=== PATIENT | female | born 1960 | race Caucasian/White ===

== ENCOUNTER 2019-08-19 18:57 | Emergency (ER) | payer OTHER ==
[~2019-08-19] VITALS: Ht 165.1 cm; Wt 81.8 kg
[2019-08-19 19:19] VITALS: Ht 165.1 cm; Wt 81.8 kg
[2019-08-19] MEDS ORDERED: AMANTADINE100 M1 PO (19:21)
[2019-08-19] MEDS ORDERED: NEURONTIN 300300 MG PO (19:21)
[2019-08-19] MEDS ORDERED: OMEPRAZOLE40 MG PO (19:21)
[2019-08-19] MEDS ORDERED: CELEBREX200 MG PO (19:21)
[2019-08-19] MEDS ORDERED: PREDNISONE1 MG PO (19:21)
[2019-08-19] MEDS ORDERED: MECLIZINE HCL25 MG PO (19:22)
[2019-08-19] MEDS ORDERED: FISH OIL 1,0001 CA1 PO (19:22)
[2019-08-19] MEDS ORDERED: ASCORBIC ACID500 MG PO (19:22)
[2019-08-19] MEDS ORDERED: PROVIGIL200 MG PO (19:22)
[2019-08-19] MEDS ORDERED: ZOCOR40 MG PO (19:22)
[2019-08-19] MEDS ORDERED: CITRACAL + D E1 EACH PO (19:22)
[2019-08-19] MEDS ORDERED: [UNRECOGNIZED DRUG - OTHER] (19:23)
[2019-08-19 20:16] LABS: BASOPHILS 0.9 % (0-2); EOSINOPHILS 9.9 % (0-7); IMMATURE GRANULOCYTES 0.2 % (0-5); LYMPHOCYTES 35.9 % (15-50); MCH 29.3 pg (26.0-34.0); MCHC 31.6 g/dL (31.0-37.0); MCV 92.9 fL (80.0-100.0); MEAN PLATELET VOLUME 9.4 fL (7.4-10.4); MONOCYTES 12.8 % (2-11); NEUTROPHILS 40.3 % (40-80); PLATELET COUNT 216 10x3/uL (130-400); RBC 4.09 10x6/uL (4.00-5.40); RDW 14.1 % (11.5-14.5); WBC 5.5 10x3/uL (4.8-10.8)
[2019-08-19 20:19] LABS: APPEARANCE CLEAR (CLEAR); BILIRUBIN NEGATIVE (NEGATIVE); COLOR YELLOW (YELLOW); GLUCOSE NEGATIVE (NEGATIVE); KETONE NEGATIVE (NEGATIVE); NITRITE NEGATIVE (NEGATIVE); PROTEIN NEGATIVE (NEGATIVE); UROBILINOGEN NORMAL (NORMAL)
[2019-08-19 20:26] LABS: CALC OSMOLALITY 277 mosm/kg (275-300); CALCIUM 8.7 mg/dL (8.5-10.1); CARBON DIOXIDE 28.1 mmol/L (21.0-32.0); CHLORIDE - SERUM 104 mmol/L (98-107); CREATININE - SERUM 0.8 mg/dL (0.6-1.3); GLUCOSE 95 mg/dL (74-106); POTASSIUM - SERUM 3.8 mmol/L (3.5-5.1); SODIUM 141 mmol/L (136-145); UREA NITROGEN 4 mg/dL (7-18); eGFR NON AFRICAN AMERICAN 78 mL/min (90-120)
[2019-08-19 20:34] LABS: ALBUMIN 3.6 g/dL (3.4-5.0); ALKALINE PHOSPHATASE 90 U/L (46-116); ALT (SGPT) 31 U/L (10-68); BILIRUBIN - TOTAL 0.45 mg/dL (0.2-1.3); LIPASE 113 U/L (73-393); PROTEIN - SERUM 6.7 g/dL (6.4-8.2); TROPONIN-I < 0.017 ng/mL (0.000-0.060)
[2019-08-19 20:38] LABS: UDS - AMPHET NEGATIVE QUAL (NEGATIVE); UDS - BARB NEGATIVE QUAL (NEGATIVE); UDS - BENZO NEGATIVE QUAL (NEGATIVE); UDS - COCAINE NEGATIVE QUAL (NEGATIVE); UDS - OPIATE POSITIVE QUAL (NEGATIVE); UDS - PCP NEGATIVE QUAL (NEGATIVE); UDS - THC NEGATIVE QUAL (NEGATIVE)
[2019-08-19] MEDS ORDERED: CYCLOBENZAPRINE10 MG PO (20:53)
[2019-08-19 22:36] VITALS: BP 162/76
== END 2019-08-19 22:37 | disposition home or self-care (01) ==
LOC: D.ER 18:57
PROVIDERS: Emergency Medicine; Family Medicine
DX: R10.9 Unspecified abdominal pain (principal)

== ENCOUNTER → 2021-03-06 16:12 | Outpatient (CLI) | payer OTHER ==
[2020-11-01 12:31] VITALS: BMI 30.1
[~2021-03-06 16:12] MED LIST: AMANTADINE100 M1 PO; ASCORBIC ACID500 MG PO; AUBAGIO PO; CELEBREX200 MG PO; CITRACAL + D E1 EACH PO; COLACE100 MG PO; COZAAR25 MG PO; CYCLOBENZAPRINE10 MG PO; ELIQUIS2.5 MG PO; FISH OIL 1,0001 CA1 PO; MECLIZINE HCL25 MG PO; NEURONTIN 300300 MG PO; OMEPRAZOLE40 MG PO; PERCOCET 10-321 EAC1 PO; PREDNISONE1 MG PO; PROVIGIL200 MG PO; VIBRAMYCIN 100100 MG PO; ZOCOR40 MG PO
[2021-03-06 16:41] LABS: BASOPHILS 0.3 % (0-2); EOSINOPHILS 8.1 % (0-7); HEMATOCRIT 41.2 % (36.0-48.0); HEMOGLOBIN 13.2 g/dL (12-16); LYMPHOCYTES 32.6 % (15-50); MCH 31.6 pg (26.0-34.0); MCHC 32.1 g/dL (31.0-37.0); MCV 98.3 fL (80.0-100.0); MEAN PLATELET VOLUME 8.1 fL (7.4-10.4); PLATELET COUNT 325 10x3/uL (130-400); RBC 4.19 10x6/uL (4.00-5.40); RDW 16.7 % (11.5-14.5); WBC 6.4 10x3/uL (4.8-10.8)
[2021-03-06 19:15] LABS: ERYTHROCYTE SEDIMENTATION RATE 15 mm/hr (0-30)
== END | disposition home or self-care (01) ==
LOC: D.LABREF 16:12
PROVIDERS: ATTEND Orthopaedic Surgery
DX: M25.552 Pain in left hip (principal)